=== PATIENT | female | born 1995 | race Hispanic/Latino ===

== ENCOUNTER → 2020-11-03 | Outpatient (CLI) | payer OTHER ==
[~2020-11-03] VITALS: Ht 7.6 cm; Wt 132.4 kg
== END | disposition home or self-care (01) ==
LOC: DTH 14:15
PROVIDERS: ATTEND Surgery
DX: G47.33 Obstructive sleep apnea (adult) (pediatric) (principal); E66.01 Morbid (severe) obesity due to excess calories; E11.9 Type 2 diabetes mellitus without complications
CPT/HCPCS: 97802

== ENCOUNTER → 2021-01-04 | Outpatient (CLI) | payer OTHER | END | disposition home or self-care (01) | LOC: EDUNIT# 15:00 → DTH 15:44 | PROVIDERS: ATTEND Surgery | DX: G47.33 Obstructive sleep apnea (adult) (pediatric) (principal); E66.01 Morbid (severe) obesity due to excess calories; E11.9 Type 2 diabetes mellitus without complications | CPT/HCPCS: 97803 ==

== ENCOUNTER → 2021-03-03 | Outpatient (CLI) | payer OTHER | END | disposition home or self-care (01) | LOC: DTH 14:12 → EDUNIT# 15:00 | PROVIDERS: ATTEND Surgery | DX: G47.33 Obstructive sleep apnea (adult) (pediatric) (principal); E66.01 Morbid (severe) obesity due to excess calories; E11.9 Type 2 diabetes mellitus without complications | CPT/HCPCS: 97803 ==

== ENCOUNTER 2022-01-28 10:33 | Inpatient (IN) | payer OTHER ==
[~2022-01-28] VITALS: Ht 160 cm; Wt 125.2 kg
[2022-01-28 16:44] LABS: BASOPHILS % (AUTO) 0.6 % (0.0-5.0); EOSINOPHILS % (AUTO) 1.8 % (0.0-8.0); HEMATOCRIT 39.4 % (36-48); LYMPHOCYTES % (AUTO) 32.5 % (21.0-51.0); MEAN CORPUSCULAR HGB CONC 33.2 g/dL (32.0-36.0); MEAN CORPUSCULAR VOLUME 87.4 fL (79-99); MONOCYTES % (AUTO) 6.2 % (3.0-13.0); NEUTROPHILS % (AUTO) 58.5 % (40.0-77.0); PLATELET COUNT (AUTO) 386 K/uL (130-400); RED BLOOD CELL COUNT(AUTO) 4.51 MIL/uL (4.00-5.50); RED CELL DISTRIBUTION WIDTH 12.9 % (11.0-15.5); WHITE BLOOD COUNT (AUTO) 12.5 K/uL (4.8-10.8)
[2022-01-28 16:46] LABS: APPEARANCE,URINE CLEAR (CLEAR); BILIRUBIN,URINE NEGATIVE (NEGATIVE); COLOR,URINE LIGHT-YELLOW (YELLOW); GLUCOSE, URINE (UA) NEGATIVE (NEGATIVE); KETONES,URINE NEGATIVE (NEGATIVE); LEUKOCYTE ESTERASE ,URINE 25 Leu/uL (NEGATIVE); NITRATE,URINE NEGATIVE (NEGATIVE); OCCULT BLOOD,URINE NEGATIVE (NEGATIVE); PROTEIN,URINE NEGATIVE (NEGATIVE); UROBILINOGEN,URINE 0.2 mg/dL (0.2-1.0)
[2022-01-28 16:52] LABS: BACTERIA,URINE RARE /HPF (None Seen); MUCUS,URINE RARE LPF (None Seen); SQUAMOUS EPITHELIAL CELL,UR FEW /HPF (0-2); TRANSITIONAL EPI CELLS,URINE MOD /HPF (None Seen)
[2022-01-28 16:54] LABS: CREATININE 0.7 mg/dL (0.5-1.5); POTASSIUM 3.8 mmol/L (3.5-5.1)
[2022-02-02 11:20] VITALS: BP 163/95
[2022-02-02] MEDS ORDERED: MULT-1367 PO (11:36)
[2022-02-02] MEDS ORDERED: METF-444 PO (11:36)
[2022-02-03] VITALS (26 sets, daily range): BP systolic 123–159; BP diastolic 71–105
[2022-02-03] MEDS ORDERED: METHYLENE BLUE 5 MG/ML AMP ONE (05:05)
[2022-02-03] MEDS ORDERED: BUPIVACAINE/EPI/PF 0.5% 30ML VIAL IJ ONE (05:06)
[2022-02-03] MEDS ORDERED: 0.9%NACL 1000ML 1,000 ML IV ONE (07:07)
[2022-02-03] MEDS ORDERED: HEPARIN 5,000 UNIT VIAL ONE (07:07)
[2022-02-03] MEDS ORDERED: CEFOXITIN SODIUM 2 GM VIAL ONE (07:08)
[2022-02-03] MEDS ORDERED: DEXMEDETOMIDINE HCL 200 MCG/2 ML VIAL IV ONE (07:32)
[2022-02-03] MEDS ORDERED: SCOPOLAMINE HYDROBROMIDE 1 EACH ADH..PATCH TD ONE (08:30)
[2022-02-03] MEDS ORDERED: LIDOCAINE PF 100MG/5ML (2%) SYRINGE 5ML ONE (09:02)
[2022-02-03] MEDS ORDERED: SUCCINYLCHOLINE 200MG/10ML SYR ONE (09:02)
[2022-02-03] MEDS ORDERED: DEXAMETHASONE SOD PHOSPHATE 10MG/ML 1ML VIAL ONE (09:02)
[2022-02-03] MEDS ORDERED: ROCURONIUM 10MG/1ML SYR 10 MG/ML ML ONE ×2 (09:03→09:53)
[2022-02-03] MEDS ORDERED: ONDANSETRON 4MG INJ ONE ×3 (09:03→10:57)
[2022-02-03] MEDS ORDERED: PROPOFOL 10 MG/ML 20ML VIAL IV ONE (09:03)
[2022-02-03] MEDS ORDERED: NEOSTIGMINE 5MG/5ML SYR IV ONE ×2 (09:03→10:30)
[2022-02-03] MEDS ORDERED: GLYCOPYRROLATE 1 MG/5 ML SYRINGE ONE ×2 (09:03→10:30)
[2022-02-03] MEDS ORDERED: MIDAZOLAM HCL 1 MG/ML 2ML VIAL ONE (09:03)
[2022-02-03] MEDS ORDERED: FENTANYL CITRATE PF 50 MCG/1 ML 2ML VIAL ONE (09:03)
[2022-02-03] MEDS ORDERED: CEFOXITIN SODIUM 2 GM VIAL IVP ONE (09:08)
[2022-02-03] MEDS ORDERED: FENTANYL CITRATE PF 50 MCG/1 ML 5ML AMP IV ONE (09:49)
[2022-02-03] MEDS ORDERED: MEPERIDINE-PF 25 MG/ML SYG ONE (10:57)
[2022-02-03] MEDS ORDERED: KETOROLAC 15MG/ML VIAL (15MG/ML) ONE (10:57)
[2022-02-03] MEDS ORDERED: PROMETHAZINE HCL 25 MG/ML 1ML AMPULE ONE ×2 (11:30→13:17)
[2022-02-03] MEDS ORDERED: MORPHINE 4 MG SYG ONE (13:17)
[2022-02-03] MEDS ORDERED: MORPHINE 4 MG SYG IM PRN (13:30)
[2022-02-03] MEDS ORDERED: MORPHINE 4 MG SYG IVP PRN (13:30)
[2022-02-03] MEDS ORDERED: MORPHINE 2 MG SYG IM PRN ×2 (13:30)
[2022-02-03] MEDS ORDERED: PROMETHAZINE HCL 25 MG/ML 1ML AMPULE IM PRN ×4 (13:30)
[2022-02-03] MEDS ORDERED: HYDROMORPHONE-NS 0.2MG/ML 50ML PCA CASSETTE IV SCH (13:30)
[2022-02-03] MEDS ORDERED: APAP/CODEINE 120/12MG 5ML PO PRN (13:30)
[2022-02-03] MEDS ORDERED: MEPERIDINE-PF 25 MG/ML SYG IV PRN (13:30)
[2022-02-03] MEDS: LACTATED RINGERS 1000ML 1,000 ML IV SCH (13:30)
[2022-02-03] MEDS ORDERED: HYDROMORPHONE PCA 10 MG/50 ML 50 ML IV PRN (15:30)
[2022-02-03] MEDS: PROMETHAZINE HCL 25 MG/ML 1ML AMPULE IM PRN (17:27)
[2022-02-03] MEDS: FAMOTIDINE 20MG VIAL IV SCH (21:02)
[2022-02-03] MEDS: HEPARIN 5,000 UNIT VIAL SQ SCH (21:03)
[2022-02-04] MEDS: LACTATED RINGERS 1000ML 1,000 ML IV SCH ×2 (00:20→05:30)
[2022-02-04 03:39] VITALS: BP 143/77
[2022-02-04 08:46] VITALS: BP 135/81
[2022-02-04] MEDS ORDERED: MULTIVITAMIN TABLET PO SCH (09:00)
[2022-02-04] MEDS ORDERED: NON-FORMULARY MEDICATION 1 EACH (Multivitamin 1 EACH) PO SCH (09:00)
[2022-02-04] MEDS: PROMETHAZINE HCL 25 MG/ML 1ML AMPULE IM PRN (10:14)
[2022-02-04] MEDS: FAMOTIDINE 20MG VIAL IV SCH (10:22)
[2022-02-04] MEDS: HEPARIN 5,000 UNIT VIAL SQ SCH (10:31)
[2022-02-04 12:24] VITALS: BP 146/88
== END 2022-02-04 16:30 | disposition home or self-care (01) | DRG 621 ==
LOC: DAHIP 02-03 06:58 → 4CH 02-03 12:25
PROVIDERS: ADMIT Surgery; ATTEND Surgery
PROC: 0DB64Z3 Excision of Stomach, Percutaneous Endoscopic Approach, Vertical (ICD-10-PCS; principal; 2022-02-03 09:08)
DX: E66.01 Morbid (severe) obesity due to excess calories (principal); E11.9 Type 2 diabetes mellitus without complications; Z68.42 Body mass index [BMI] 45.0-49.9, adult
CPT/HCPCS: 36415; 80048; 81001; 81025; 82948; 84703; 85025; 87088; 87426; G0378; J0330; J0694; J1100; J1170; J1644; J1815; J1885; J2001; J2175; J2250; J2270; J2405; J2550; J2704; J2710; J3010; J3490; J7030; J7120; Q9968